=== PATIENT | male | born 1965 | race Caucasian/White ===

== ENCOUNTER 2016-11-02 07:59 | Inpatient (IN) | payer BC, OTHER ==
[~2016-11-02] VITALS: Ht 177.8 cm; Wt 88.2 kg
[~2016-11-02 07:59] MED LIST: ASCO10004 PO; DOCU-30 PO; FAMO-79 PO; FOLI-17 PO; FURO-93 PO; MAGN64TA9 PO; MIDO5TAB PO; MULT1TAB90 PO; OCTR100V SQ; ONDA4VIA4 IVP; OXYC5TAB3 PO; PANT40TA5 PO; PHYT10AM SQ; POLY17PO5 PO; SPIR25TA PO; SUCR1ORA11 PO; TRAM-28 PO; VITA1TAB56 PO; ZOLP-413 PO
[2016-11-02] MEDS ORDERED: ONDANSETRON 2MG/ML, 2ML ONE ×2 (08:27→10:10)
[2016-11-02 08:36] LABS: HEMATOCRIT 52.9 % (39.2-51.8); HEMOGLOBIN 18.2 g/dL (13.7-18.0); WHITE BLOOD COUNT 6.4 x10^3/uL (3.4-10)
[2016-11-02 08:48] LABS: ASPARTATE AMINO TRANSFERASE 487 U/L (15-37); BLOOD UREA NITROGEN 23 mg/dL (7-18)
[2016-11-02] MEDS ORDERED: ONDANSETRON 2MG/ML, 2ML IVPush ONE ×2 (09:00→09:30)
[2016-11-02] MEDS ORDERED: SODIUM CHLORIDE 0.9% 1,000ML IVBOLUS ONE (09:00)
[2016-11-02] MEDS ORDERED: morphine SULFATE 10 MG/ML, 1ML IVPush ONE (09:30)
[2016-11-02] MEDS ORDERED: MAALOX/HYOSCYAMINE/LIDOCAINE 45 ML BTL PO ONE (09:30)
[2016-11-02] MEDS ORDERED: MAALOX/HYOSCYAMINE/LIDOCAINE 45 ML BTL ONE (10:10)
[2016-11-02] MEDS ORDERED: MORPHINE SULFATE 4 MG/ML, 1ML ONE ×2 (10:10→11:31)
[2016-11-02] MEDS: MORPHINE SULFATE 4 MG/ML, 1ML IVPush PRN ×4 (10:12→20:15)
[2016-11-02 11:10] LABS: HEP B SURF. AB 10.3 mIU/mL (0.0-10.0)
[2016-11-02] MEDS ORDERED: ONDANSETRON ODT 4 MG PO PRN (12:00)
[2016-11-02] MEDS ORDERED: ONDANSETRON 2MG/ML, 2ML IVPush PRN (12:00)
[2016-11-02] MEDS ORDERED: PROMETHAZINE 25 MG/ML, 1ML IM PRN (12:00)
[2016-11-02 13:50] VITALS: BP 150/103
[2016-11-02 13:52] VITALS: BP 150/103
[2016-11-02] MEDS: SODIUM CHLORIDE 0.9% 1,000 ML IV SCH ×2 (14:15→20:13)
[2016-11-02] MEDS: ENOXAPARIN 40 MG/0.4 ML SQ SCH (14:15)
[2016-11-02] MEDS ORDERED: METO50TA82 PO (14:57)
[2016-11-02] MEDS ORDERED: AMLO10TA2 PO (14:57)
[2016-11-02] MEDS ORDERED: TACR1CAP4 PO ×2 (14:57)
[2016-11-02] MEDS ORDERED: MAGN400T7 PO (14:57)
[2016-11-02] MEDS ORDERED: FERR325T10 PO (14:57)
[2016-11-02 19:09] VITALS: BP 142/91
[2016-11-02] MEDS: MAGNESIUM OXIDE 400 MG TABLET PO SCH (20:13)
[2016-11-02] MEDS: METOPROLOL TARTRATE 50 MG TABLET PO SCH (20:13)
[2016-11-02] MEDS: TACROLIMUS 1 MG CAPSULE PO SCH (20:15)
[2016-11-03] MEDS: MORPHINE SULFATE 4 MG/ML, 1ML IVPush PRN ×2 (01:22→05:17)
[2016-11-03 01:55] VITALS: BP 149/90
[2016-11-03 05:48] LABS: HEMATOCRIT 50.3 % (39.2-51.8); HEMOGLOBIN 17.5 g/dL (13.7-18.0)
[2016-11-03 05:52] LABS: ASPARTATE AMINO TRANSFERASE 179 U/L (15-37); BLOOD UREA NITROGEN 16 mg/dL (7-18)
[2016-11-03 07:59] VITALS: BP 133/104
[2016-11-03] MEDS: ASCORBIC ACID 500 MG TABLET PO SCH (08:38)
[2016-11-03] MEDS: MAGNESIUM OXIDE 400 MG TABLET PO SCH ×2 (08:38→21:52)
[2016-11-03] MEDS: METOPROLOL TARTRATE 50 MG TABLET PO SCH ×2 (08:38→21:52)
[2016-11-03] MEDS: AMLODIPINE 5 MG TABLET PO SCH (08:38)
[2016-11-03] MEDS: TACROLIMUS 1 MG CAPSULE PO SCH ×2 (08:38→21:53)
[2016-11-03] MEDS: SODIUM CHLORIDE 0.9% 1,000 ML IV SCH ×3 (08:42→21:52)
[2016-11-03] MEDS: OXYcodone IR 5MG TABLET PO PRN ×2 (08:56→13:30)
[2016-11-03] MEDS: FERROUS SULFATE 325 MG TABLET PO SCH (11:57)
[2016-11-03] MEDS: ENOXAPARIN 40 MG/0.4 ML SQ SCH (11:57)
[2016-11-03 13:32] VITALS: BP 128/87
[2016-11-03 19:17] VITALS: BP 129/86
[2016-11-03] MEDS ORDERED: DIPHENHYDRAMINE 50 MG CAPSULE PO ONE (21:00)
[2016-11-04 04:10] VITALS: BP 134/86
[2016-11-04] MEDS: SODIUM CHLORIDE 0.9% 1,000 ML IV SCH ×2 (04:56→11:40)
[2016-11-04 05:49] LABS: HEMATOCRIT 44.3 % (39.2-51.8); HEMOGLOBIN 15.2 g/dL (13.7-18.0); WHITE BLOOD COUNT 6.7 x10^3/uL (3.4-10)
[2016-11-04 06:02] LABS: BLOOD UREA NITROGEN 11 mg/dL (7-18)
[2016-11-04 06:45] LABS: ASPARTATE AMINO TRANSFERASE 64 U/L (15-37)
[2016-11-04 07:46] VITALS: BP 137/93
[2016-11-04] MEDS: METOPROLOL TARTRATE 50 MG TABLET PO SCH (09:00)
[2016-11-04] MEDS: FERROUS SULFATE 325 MG TABLET PO SCH (09:29)
[2016-11-04] MEDS: TACROLIMUS 1 MG CAPSULE PO SCH (09:30)
[2016-11-04] MEDS: MAGNESIUM OXIDE 400 MG TABLET PO SCH (09:30)
[2016-11-04] MEDS: AMLODIPINE 5 MG TABLET PO SCH (09:30)
[2016-11-04] MEDS: ASCORBIC ACID 500 MG TABLET PO SCH (09:30)
[2016-11-04] MEDS: ENOXAPARIN 40 MG/0.4 ML SQ SCH (12:00)
[2016-11-04 13:59] VITALS: BP 139/107
[2016-11-05 14:07] LABS: CMV QUANT DNA PCR BLOOD Negative (Negative)
== END 2016-11-04 17:45 | disposition home or self-care (01) | DRG 683 ==
LOC: ED 08:18 → EDIP 11:06 → 3NE 13:59
PROVIDERS: ADMIT Internal Medicine; ATTEND Internal Medicine
DX: N17.9 Acute kidney failure, unspecified (principal); K76.6 Portal hypertension; Z94.4 Liver transplant status; E86.9 Volume depletion, unspecified; K70.30 Alcoholic cirrhosis of liver without ascites; I12.9 Hypertensive chronic kidney disease with stage 1 through stage 4 chronic kidney disease, or unspecified chronic kidney disease; N18.9 Chronic kidney disease, unspecified; K31.89 Other diseases of stomach and duodenum; R73.9 Hyperglycemia, unspecified; D69.6 Thrombocytopenia, unspecified; Z82.49 Family history of ischemic heart disease and other diseases of the circulatory system; Q27.33 Arteriovenous malformation of digestive system vessel
CPT/HCPCS: 36415; 80053; 80197; 85025; 85610; 85651; 86140; 86704; 86705; 86706; 86708; 86709; 86803; 87340; 87497; 87521; 93976; 96361; 96374; 96375; 96376; J1650; J2405; J7507; J7030